=== PATIENT | female | born 1995 | race Caucasian/White ===

== ENCOUNTER 2022-12-27 10:09 | Inpatient (IN) | payer MEDICAID ==
[~2022-12-27] VITALS: Ht 160 cm; Wt 75.5 kg
[2023-01-01] VITALS (30 sets, daily range): BP systolic 96–148; BP diastolic 46–85; PULSE 76–127; TEMP 97.8–98.8
--- NOTE | 2023-01-01 06:55 | NUR ---
0655 - Patient ambulatory to LDR6 accompanied by yangfrienEduardo cruz. Patient reports to labor and delivery unit for post dates induction. Patient oriented to room. Patient changes into gown. 0703 - Patient on monitor. Plan of care reviewed. Questions answered. Patient denies contractions or leaking of fluid but reports bloody show last night. Patient reports good movement. 0715 - IV placed in LH. LR initiated as ordered. 0720 - SVE performed by this RN. . Vertex presentation noted. 0735 - Consents reviewed and signed. FHR Category I on the monitor. Pitocin gtt initiated as ordered - see NOV. Care ongoing.
--- NOTE | 2023-01-01 07:45 | NUR ---
0745 - MD Barber at bedside. Plan of care reviewed, questions answered and patient agreeable to plan. 0749 - SVE performed by . . AROM performed by . Clear fluid noted. Pericare performed. Patient repositioned. Care ongoing.
[2023-01-01 07:56] LABS: BASO % 0.3 % (0.0-2.0); EOS # 0.1 K/mm3 (0.0-0.7); EOS % 0.7 % (0.0-4.0); GRAN # 4.9 K/mm3 (1.4-6.5); GRAN % 71.6 % (42.2-75.2); HEMATOCRIT 35.7 % (37.0-47.0); HEMOGLOBIN 12.4 g/dl (12.5-16.0); LYMPH # 1.3 K/mm3 (1.2-3.4); LYMPH % 19.2 % (20.0-51.0); MEAN CELL VOLUME 95 fl (80.0-100.0); MEAN CORPUSCULAR HEMOGLOBIN 33 pg (27-31); MEAN CORPUSCULAR HGB CONC 35 g/dl (33.0-37.0); MEAN PLATELET VOLUME 11.6 fl (7.4-10.4); MONO # 0.5 K/mm3 (0.1-0.6); MONO % 7.3 % (1.7-9.3); PLATELET COUNT 205 K/mm3 (130-400); RED BLOOD COUNT 3.75 M/mm3 (4.10-5.30); REDCELL DISTRIBUTION WIDTH-CV 14.3 % (11.5-14.5)
--- NOTE | 2023-01-01 08:50 | NUR ---
0850 - FHR tracing intermittently due to maternal position. This RN to bedside. Monitor adjusted. Care ongoing.
--- NOTE | 2023-01-01 10:00 | NUR ---
1000 - Patient ambulatory to bathroom accompanied by this RN. Patient reports feeling rectal pressure while sitting on the toilet. 1003 - Patient ambulatory back to bed accompanied by this RN. 1005 - SVE performed by this RN. -/. FHR difficult to trace at this time. Patient repositioned left lateral and monitor adjusted. 1007 - Late decel noted. Bolus initiated. Patient repositioned right lateral. 1015 - Decel noted. Patient positioned left lateral. 1018 - Patient repositioned left lateral with right leg in stirrup. Care ongoing.
--- NOTE | 2023-01-01 11:12 | NUR ---
1110 - Patient reports feeling more rectal pressure. SVE performed by this RN. /-1. 1112 - Patient requests epidural. GREER Lyles notified for anesthesia. 1122 - Patient again reporting more pressure. SVE performed by this RN. /-1. Patient would lilke to continue with epidural. 1124 - GREER Lyles at bedside. Patient positioned sitting edge of bed. 1128 - FHR monitor tracing difficult to trace due to maternal position. 1132 - Single shot per [employer]. 1135 - Patient repositioned. Care ongoing.
--- NOTE | 2023-01-01 12:15 | NUR ---
1215 - SVE performed by this RN. Patient complete. 1218 - Pushing instructions reviewed with patient. Patient begins pushing with contractions. Good maternal effort. 1230 - Patient continues pushing with contractions. Good maternal effort. 1245 - MD Barber to bedside. Patient continues pushing with contractions. Good maternal effort. 1249 - Patient continues pushing with contractions. Spontaneous vaginal delivery of infant. Loose nuchal x1 reduced by MD. to mother's belly. Cord clamped and cut. dried and stimulated by this RN and RUFUS Moody for nursery. RUFUS Moody assumes care of infant. 1253 - Spontaneous delivery of intact placenta. Fundal massage performed by this RN, fundus becomes firm. 1255 - Repair of 1st degree perineal laceratio performed by . 1300 - Pericare performed. Bed pads changed. Ice pack pad applied. Patient repositioned. Care ongoing.
--- NOTE | 2023-01-01 15:00 | NUR ---
1500 - Patient ambulatory to bathroom accompanied by this RN. Patient voids. Pericare performed. New pad and tucks pads applied. New mesh under and gown on. 1515 - Patient ambulatory to room 215 accompanied by this RN and spouse. Patient oriented to room. Call light in reach. Care ongoing.
--- NOTE | 2023-01-01 18:45 | NUR ---
PT RESTING IN BED, VISITING WITH FAMILY. FOB HOLDING . PT APPEARS COMFORTABLE AT THIS TIME AND HAS NO COMPLAINTS OF PAIN. MEDICATION FOR FUTURE PAIN RELIEF DISCUSSED, PT WILL ACCEPT NEXT DOSAGE FOR PREVENTATIVE MEASURE OF PAIN RELIEF. ALL VSS, FUNDUS FIRM AND BLEEDING WNL. ICE PACK APPLIED TO PERINEUM. ALL QUESTIONS ANSWERED AT THE BEDSIDE. ICE WATER REFILLED AND CALL LIGHT WITHIN REACH.
[2023-01-02 02:00] VITALS: BP 93/57; PULSE 86; TEMP 97.9
[2023-01-02] MEDS ORDERED: MOTRIN 800800 MG/TAB PO (07:15)
[2023-01-02 07:51] VITALS: BP 107/73; PULSE 85; TEMP 98.2
--- NOTE | 2023-01-02 09:46 | NUR ---
Initial visit; Parents thanked [employer] for offering congratulations and God's blessings for the of their daughter. thanked famly for choosing our hospital.
[2023-01-02 12:10] VITALS: BP 99/68; PULSE 98; TEMP 97.9
--- NOTE | 2023-01-02 16:30 | NUR ---
6135 - Discharge instructions reviewed for patient and baby with patient and spouse. Questions answered and patient verbalizes understanding.
--- NOTE | 2023-01-02 17:00 | NUR ---
1700 - Patient ambulatory off unit accompanied by baby and spouse.
== END 2023-01-02 17:00 | disposition home or self-care (01) | DRG 807 ==
LOC: OB 01-01 06:50 → LDR 01-01 06:50 → OB 01-01 08:07
PROVIDERS: ADMIT Obstetrics & Gynecology
PROC: 10E0XZZ Delivery of Products of Conception, External Approach (ICD-10-PCS; principal; 2023-01-01)
PROC: 0HQ9XZZ Repair Perineum Skin, External Approach (ICD-10-PCS; 2023-01-01)
PROC: 10907ZC Drainage of Amniotic Fluid, Therapeutic from Products of Conception, Via Natural or Artificial Opening (ICD-10-PCS; 2023-01-01)
DX: O48.0 Post-term pregnancy (principal); Z37.0 Single live birth; O70.0 First degree perineal laceration during delivery; O69.81X0 Labor and delivery complicated by cord around neck, without compression, not applicable or unspecified; Z3A.41 41 weeks gestation of pregnancy
CPT/HCPCS: J2590; J2795; J7120